=== PATIENT | female | born 1975 | race Caucasian/White ===

== ENCOUNTER 2017-12-05 04:00 | Emergency (ER) | payer OTHER, SELFPAY ==
[2017-12-05 04:01] VITALS: BP 158/94; PULSE 101; RESP 20; TEMP 36.8; O2SAT 97; BMI 41.5
[2017-12-05 04:04] VITALS: BP 158/94; PULSE 93; RESP 21; TEMP 36.8; O2SAT 98; BMI 41.5
[2017-12-05] MEDS: predniSONE 20 MG Tablet 60 MG PO (04:17)
--- NOTE | 2017-12-05 05:11 | ED.VISSUMM ---
- ER Visit Summary Date of Service: 12/05/17 Chief Complaint: Rash History of Present Illness: The patient is a 42 F who presents with a rash. She has a history of multiple prior similar episodes of urticaria. She has undergone testing from an mosaic floor layer and received no definitive diagnosis on what she is reacting to. She woke up today and states that her eyes and ears felt like there were swelling and tingling and she then began developed a hives-like rash. She took 2 Benadryl with improvement of symptoms and then presented here. She denies any difficulty swallowing or speaking. No nausea or vomiting. Physical Examination: Afebrile vitals unremarkable Moist mucous membranes Heart regular rate and rhythm Lungs are clear Abdomen soft Airway patent Urticarial rash noted to the arms and upper chest Test Results: Not indicated Emergency Department Course and Treatment: Patient has no evidence of anaphylaxis. At the time my examination she only had an urticarial rash without really any other symptoms. We discussed Kenalog although the patient would prefer to take prednisone rather than have an injection. She was given prednisone here. She does have some for a standing prescription that she is to take at the onset of symptoms. However she only has a couple of tablets of this was given a new prescription for prednisone and advised to keep that prednisone with her EpiPen as instructed by her mosaic floor layer. She has been observed here for an hour and remained stable. Her urticaria has actually slightly progressed however she still has no airway issues and is comfortable with the plan to be discharged. Treatment Plan: [] Disposition: Discharge Impression: Urticaria This note was generated with [employer] dictation software. It may contain incorrect words, spelling, and punctuation that were not noted in review of the chart prior to signing ED Disposition - Plan for ED Patient: Chief Complaint: Allergic Reaction Referrals: Catalina Silva MD [Primary Care Provider] -
[2017-12-05 05:14] VITALS: BP 148/93; PULSE 82; RESP 18; O2SAT 93
--- NOTE | 2017-12-05 05:14 | ED.DCSUM_ITS ---
- ER Visit Summary Date of Service: 12/05/17 Chief Complaint: Rash History of Present Illness: The patient is a 42 F who presents with a rash. She has a history of multiple prior similar episodes of urticaria. She has undergone testing from an air defense specialist and received no definitive diagnosis on what she is reacting to. She woke up today and states that her eyes and ears felt like there were swelling and tingling and she then began developed a hives- like rash. She took 2 Benadryl with improvement of symptoms and then presented here. She denies any difficulty swallowing or speaking. No nausea or vomiting. Physical Examination: Afebrile vitals unremarkable Moist mucous membranes Heart regular rate and rhythm Lungs are clear Abdomen soft Airway patent Urticarial rash noted to the arms and upper chest Test Results: Not indicated Emergency Department Course and Treatment: Patient has no evidence of anaphylaxis. At the time my examination she only had an urticarial rash without really any other symptoms. We discussed Kenalog although the patient would prefer to take prednisone rather than have an injection. She was given prednisone here. She does have some for a standing prescription that she is to take at the onset of symptoms. However she only has a couple of tablets of this was given a new prescription for prednisone and advised to keep that prednisone with her EpiPen as instructed by her air defense specialist. She has been observed here for an hour and remained stable. Her urticaria has actually slightly progressed however she still has no airway issues and is comfortable with the plan to be discharged. Treatment Plan: [] Disposition: Discharge Impression: Urticaria This note was generated with [employer] dictation software. It may contain incorrect words, spelling, and punctuation that were not noted in review of the chart prior to signing ED Disposition - Plan for ED Patient: Chief Complaint: Allergic Reaction Referrals: Catalina Silva MD [Primary Care Provider] -
--- NOTE | 2017-12-05 05:14 | ED.DEP ---
ED Disposition - Plan for ED Patient: Chief Complaint: Allergic Reaction Instructions: ED Urticaria Prescriptions: Prednisone [Deltasone] 60 mg PO DAILY #12 tab Referrals: Catalina Silva MD [Primary Care Provider] -
== END 2017-12-05 05:18 | disposition home or self-care (01) ==
LOC: ED 04:17
PROVIDERS: Emergency Provider Emergency Medicine; Family Provider Internal Medicine; PCP Internal Medicine
DX: L50.9 Urticaria, unspecified (principal); L90.0 Lichen sclerosus et atrophicus; Z79.899 Other long term (current) drug therapy
CPT/HCPCS: 99283

== ENCOUNTER → 2018-01-18 08:34 | Outpatient (CLI) | payer OTHER, SELFPAY | PROVIDERS: Family Provider Internal Medicine; PCP Internal Medicine; Visit Provider Obstetrics & Gynecology | DX: Z12.31 Encounter for screening mammogram for malignant neoplasm of breast (principal) | CPT/HCPCS: 77063; 77067 ==

== ENCOUNTER 2018-01-21 02:14 | Emergency (ER) | payer OTHER, SELFPAY ==
[2018-01-21 02:15] VITALS: BP 152/113; PULSE 103; RESP 21; TEMP 36.8; O2SAT 97; BMI 43.9
--- NOTE | 2018-01-21 02:26 | ED.DCSUM_ITS ---
- ER Visit Summary Date of Service: 01/21/18 Chief Complaint: [] Complaining of food allergy History of Present Illness: The patient is a 43 F 20 minutes prior to coming in developed a food allergy. This is similar to previous experiences. She wakes up in the middle the night and has the urge to defecate. She goes to the bathroom and then developed hives on her arms and her tongue and throat feel tight. She has never had use epinephrine outside the emergency department. She took Benadryl just prior to coming in and it slowly kicking in now. She has had this on and off for last couple years and has seen an rn bariatric. They think it secondary to reheated food. She had a negative workup. She has had multiple ER visits for this. Physical Examination: [] Vital signs reviewed General: Well-nourished well-developed Head: Normocephalic atraumatic Eyes: Pupils equal round and reactive to light extraocular movements intact ENT: TMs clear no hemotympanum no trauma. Throat exam normal Neck: Nontender full range of motion Cardiovascular: Regular rate rhythm no murmurs normal S1-S2 Respiratory: No distress clear to auscultation bilaterally chest nontender Abdomen: Soft nontender nondistended normal bowel sounds no masses Back: Nontender no CVA tenderness Extremities: Nontender active range of motion ?4 extremities no trauma Skin: Very mild redness on her bilateral upper extremities in anterior chest wall. No significant hives. Neuro alert oriented cranial nerves II through XII intact normal strength sensation reflexes Test Results: [] Emergency Department Course and Treatment: [] Patient monitored in the department. She did not want any steroids because Benadryl usually works. Watch for approximately an hour with almost complete resolution of symptoms. Will be discharged with prednisone to use as needed. She will likely not have to fill this as it is getting better. She will follow-up as an outpatient Treatment Plan: [] Disposition: [] Impression: [] Allergic reaction This note was generated with [employer] dictation software. It may contain incorrect words, spelling, and punctuation that were not noted in review of the chart prior to signing ED Disposition - Plan for ED Patient: Disposition: Home or Assisted Living Chief Complaint: Allergic Reaction Instructions: ED Allergic Reaction General Other Prescriptions: Prednisone [Deltasone] 60 mg PO DAILY #15 tab Referrals: Catalina Silva MD [Primary Care Provider] -
[2018-01-21 03:01] VITALS: BP 119/96; PULSE 75; RESP 14; O2SAT 96
== END 2018-01-21 03:02 | disposition home or self-care (01) ==
PROVIDERS: Emergency Provider Emergency Medicine; Family Provider Internal Medicine; PCP Internal Medicine
DX: T78.1XXA Other adverse food reactions, not elsewhere classified, initial encounter (principal); L53.9 Erythematous condition, unspecified; X58.XXXA Exposure to other specified factors, initial encounter
CPT/HCPCS: 99284; A4216

== ENCOUNTER 2018-01-26 20:57 | Emergency (ER) | payer OTHER, SELFPAY ==
[2018-01-26 20:58] VITALS: BP 145/67; PULSE 112; RESP 19; TEMP 37.2; O2SAT 98; BMI 41.0
[2018-01-26 21:27] VITALS: BP 146/89; PULSE 81; RESP 18; O2SAT 97
--- NOTE | 2018-01-26 21:47 | ED.DCSUM_ITS ---
- ER Visit Summary Date of Service: 01/26/18 Chief Complaint: Severe allergic reaction History of Present Illness: The patient is a 43 F who presents after onset of severe allergic reaction. Patient has history of idiopathic severe allergic reaction, suspected due to reheated food. Patient ate restaurant food for lunch and dinner today. Approximately 50 minutes prior to presentation, patient began experiencing itchiness, hives, swelling of the throat and tongue as well as hands. Patient took an EpiPen 15 minutes later and has had improvement of her symptoms. She still feels mild tongue swelling and has residual erythema of the skin but feels much better. She denies chest pain, shortness of breath, nausea or vomiting, headache or dizziness, or any other symptoms. Physical Examination: Vital signs: afebrile, hemodynamically stable, tachycardic at presentation but now normal heart rate, no hypoxia on room air General: well nourished, well developed, in no distress Skin: warm, dry, diffuse blanching erythema on torso and extremities, no urticaria, no pallor HEENT: normocephalic and atraumatic; PERRL, EOMI, moist mucous membranes, no observable tongue swelling, no oral lesions no lip edema Cardiovascular: regular rate and rhythm without murmurs, no peripheral edema, 2 + pulses all distal extremities Respiratory: No increased work of breathing, lungs are clear to auscultation bilaterally, no rales, rhonchi or wheezing no stridor Abdominal: Abdomen is soft, nontender with normoactive bowel sounds, no guarding or rebound, no masses MSK: Moves all extremities, no deformities, normal strength Neuro: Awake and alert, oriented ?4. No facial droop, sensation and motor function intact and symmetric Test Results: [] Emergency Department Course and Treatment: Patient already took epinephrine and has almost complete resolution of her symptoms. Patient was given prednisone, Benadryl and Pepcid for additional symptomatic relief. She will be observed for 4 hours from administration of her EpiPen for any worsening of her condition. Patient will given an additional prescription for her EpiPen, she only has one left. She will be given 5 days of prednisone and Pepcid. SHe has Benadryl at home. Patient had no return of symptoms after 4 hours of observation, and was feeling well. Skin erythema had resolved and patient had no urticaria or any further erythema. Patient was discharged home. Treatment Plan: [] Disposition: [] Impression: Anaphylaxis This note was generated with [employer] dictation software. It may contain incorrect words, spelling, and punctuation that were not noted in review of the chart prior to signing ED Disposition - Plan for ED Patient: Disposition: Home or Assisted Living Chief Complaint: Allergic Reaction Instructions: ED Anaphylaxis General Prescriptions: Epinephrine [Epi Pen] 0.3 mg IM X1 #2 syringe Famotidine [Pepcid] 20 mg PO DAILY #7 tab Prednisone [Deltasone] 40 mg PO DAILY #10 tab Referrals: Catalina Silva MD [Primary Care Provider] - 1-2 Days if not improving Additional Instructions: Please make sure you are carrying an EpiPen at all times and use it as needed. Take the prednisone and Pepcid as prescribed for the next 5-7 days. Use Benadryl every 4-6 hours as needed for itching and urticaria. If you have any worsening of your condition or any new concerning symptoms, please return immediately to the emergency department for another evaluation.
[2018-01-26] MEDS: Famotidine 20 MG Tablet PO (21:58)
[2018-01-26] MEDS: predniSONE 20 MG Tablet 40 MG PO (21:59)
[2018-01-26 22:00] VITALS: BP 135/64; PULSE 89; RESP 18; O2SAT 95
[2018-01-26] MEDS: DiphenhydrAMINE 25 MG Capsule 50 MG PO (22:15)
[2018-01-26 23:05] VITALS: PULSE 82; RESP 16; O2SAT 98
--- NOTE | 2018-01-27 00:14 | ED.DEP ---
ED Disposition - Plan for ED Patient: Disposition: Home or Assisted Living Chief Complaint: Allergic Reaction Instructions: ED Anaphylaxis General Prescriptions: Epinephrine [Epi Pen] 0.3 mg IM X1 #2 syringe Famotidine [Pepcid] 20 mg PO DAILY #7 tab Prednisone [Deltasone] 40 mg PO DAILY #10 tab Referrals: Catalina Silva MD [Primary Care Provider] - 1-2 Days if not improving Additional Instructions: Please make sure you are carrying an EpiPen at all times and use it as needed. Take the prednisone and Pepcid as prescribed for the next 5-7 days. Use Benadryl every 4-6 hours as needed for itching and urticaria. If you have any worsening of your condition or any new concerning symptoms, please return immediately to the emergency department for another evaluation.
[2018-01-27 00:36] VITALS: BP 134/78; PULSE 94; RESP 16; O2SAT 98
--- NOTE | 2018-01-27 00:37 | ED.RN ---
THIS NURSE REVIEWED D/C INSTRUCTIONS WITH PT. PT VERBALIZED UNDERSTANDING OF INSTRUCTIONS. IV D/C. IV CATHETER INTACT. PT TOLERATED WELL. PER DR PURVIS PT OK TO BE D/C AT THIS TIME SINCE RECEIVING BENADRYL DOSE. PT AMBULATES FROM ROOM ON OWN WITHOUT ASSISTANCE FROM STAFF
== END 2018-01-27 00:38 | disposition home or self-care (01) ==
PROVIDERS: Emergency Provider Emergency Medicine; Family Provider Internal Medicine; PCP Internal Medicine
DX: T78.09XA Anaphylactic reaction due to other food products, initial encounter (principal); Z79.899 Other long term (current) drug therapy
CPT/HCPCS: 99284; A4216

== ENCOUNTER 2019-02-19 03:08 | Emergency (ER) | payer OTHER, SELFPAY ==
[2019-02-19 03:09] VITALS: BP 149/87; PULSE 96; RESP 18; TEMP 36.6; O2SAT 98; BMI 44.9
[2019-02-19 03:13] VITALS: RESP 18
--- NOTE | 2019-02-19 03:16 | CT_ITS ---
STUDY: CT ABDOMEN AND PELVIS WITHOUT CONTRAST REASON FOR EXAM: Female, 44 years old. . The left-sided flank pain RADIATION DOSAGE (If Supplied By Facility): CTDIvol = ( 23.92 ) mGy, DLP = ( 1159.11 ) mGycm TECHNIQUE: Transaxial images were obtained from the dome of the diaphragm to the symphysis pubis without oral contrast, and without intravenous contrast. Sagittal and coronal images were reconstructed. Individualized dose optimization techniques were used for this CT. COMPARISON: April 18, 2014 CT abdomen pelvis FINDINGS: Lung bases demonstrate no evidence for consolidative process. No pericardial effusion. Liver and spleen are grossly within normal limits. The gallbladder and the pancreas as well as the adrenal glands appear unremarkable. No evidence for acute appendicitis. No evidence for acute diverticulitis. A few scattered colonic diverticulosis. Mild left-sided hydronephrosis and hydroureter with an approximately 3 to 4 mm stone in the proximal left ureter Osseous structures demonstrate no acute abnormalities. Mild levoconvex lumbar curvature. Few scattered nonenlarged retroperitoneal lymph nodes IMPRESSION: Mild left-sided hydronephrosis and hydroureter with a 3 to 4 mm stone in the proximal left ureter. Electronically Signed: Pedro Buck, at 4:15 EDT Tel , Service support , CT/Abdomen/Pelvis without Cont
--- NOTE | 2019-02-19 03:17 | ED.DCSUM_ITS ---
History of Present Illness Chief Complaint: Flank Pain Detail of Chief Complaint: Left flank pain Informant: Patient Onset: - - Waxing and waning pain x1 month, worse since 10 PM last evening. Context: Gradual Onset Timing: Waxes and wanes Current Severity: Moderate Maximum Severity: Moderate Narrative: Patient presents with left flank pain this been ongoing intermittently for the past month. Since 10 PM last evening pain is gotten significantly worse. She states she was treated for UTI last week. She has had kidney stones in the past and this feels similar. She has never required surgery for her stones. She did take 800 mg of ibuprofen prior to arrival. Past Medical History - Allergies and Home Meds Allergies/Adverse Reactions: Allergies FOOD ALLERGY - UNKNOWN Allergy (Uncoded 02/19/19 03:16) Anaphylaxis Primary Care Physician: Catalina Silva MD [Primary Care Provider] - Prior records reviewed: Yes Past Medical History: - - Reviewed Smoking Status: Never smoker Review of Systems General: Reports: Chills. Denies: Fever Eyes: Denies: Visual changes - bilaterally ENT: Denies: Bilateral ear pain Cardiovascular: Denies: Chest pain Respiratory: Denies: Dyspnea, Cough Gastrointestinal: Reports: Abdominal pain - Left flank pain, Nausea. Denies: Vomiting Genitourinary: Denies: Dysuria, Hematuria Musculoskeletal: Reports: Back pain - Left flank Skin: Denies: Rash Endocrine: Denies: Polyuria, Polydipsia Hematologic: Denies: Easy bruising Allergy: Denies: Uticaria Physical Exam Vital Signs/Narrative: Vital Signs Temp Pulse Resp BP Pulse Ox 02/19/19 03:13 18 02/19/19 03:09 97.8 F 96 18 149/87 H 98 Inital Vital Signs reviewed: Yes General: Well nourished, Well developed Head: Normocephalic Eyes: EOMI ENT: Moist mucous membranes Neck: Supple Cardiovascular: Regular rate, Regular rhythm Respiratory: No distress, CTA bilaterally Abdomen: Soft, Nontender Back: Nontender Extremities: Nontender Skin: Normal color, No rash Neurological: Alert, Oriented x3 Psychological: Normal affect Diagnostic/Tx/Re-eval Impressions Abdomen/Pelvis CT 02/19/19 03:16 IMPRESSION: Mild left-sided hydronephrosis and hydroureter with a 3 to 4 mm stone in the proximal left ureter. 02/19/19 03:16 Abdomen/Pelvis without Cont [CT] Stat Laboratory Results 02/19/19 02/19/19 02/19/19 03:15 03:15 03:24 WBC 13.1 H RBC 4.50 Hgb 11.2 L Hct 35.3 L MCV 78.4 L MCH 24.9 L MCHC 31.7 L RDW Std Deviation 40.0 RDW Coeff of Julia 13.9 Plt Count 363 MPV 8.8 Immature Gran % (Auto) 0.500 Neut % (Auto) 68.6 Lymph % (Auto) 23.9 [place] % (Auto) 4.6 Eos % (Auto) 2.1 Baso % (Auto) 0.3 Absolute Neuts (auto) 9.0 H Absolute Lymphs (auto) 3.12 Nucleated RBC % 0 Sodium Potassium Chloride Carbon Dioxide Anion Gap BUN Creatinine Estim Creat Clear Calc Est GFR (MDRD) Af Amer Est GFR (MDRD) Non-Af BUN/Creatinine Ratio Glucose Calcium Urine Color Yellow Urine Clarity Sl. Cloudy Urine pH 6.5 Ur Specific [place] 1.015 Urine Protein 30 H Urine Glucose (UA) Normal Urine Ketones Negative Urine Occult Blood 25 H Urine Nitrite Negative Urine Bilirubin Negative Urine Urobilinogen Normal Ur Leukocyte Esterase 500 H Urine RBC 0-5 SEEN Urine WBC 50-100 SEEN Ur Squamous Epith Cells 0-5 SEEN Urine Bacteria 2+ Urine Mucus 0 SEEN Urine Test Negative 02/19/19 03:24 WBC RBC Hgb Hct MCV MCH MCHC RDW Std Deviation RDW Coeff of Julia Plt Count MPV Immature Gran % (Auto) Neut % (Auto) Lymph % (Auto) [place] % (Auto) Eos % (Auto) Baso % (Auto) Absolute Neuts (auto) Absolute Lymphs (auto) Nucleated RBC % Sodium 140 Potassium 4.0 Chloride 106 Carbon Dioxide 24.0 Anion Gap 10 BUN 8 Creatinine 0.78 Estim Creat Clear Calc 74.31 Est GFR (MDRD) Af Amer 105 Est GFR (MDRD) Non-Af 87 BUN/Creatinine Ratio 10.3 Glucose 103 Calcium 9.0 Urine Color Urine Clarity Urine pH Ur Specific [place] Urine Protein Urine Glucose (UA) Urine Ketones Urine Occult Blood Urine Nitrite Urine Bilirubin Urine Urobilinogen Ur Leukocyte Esterase Urine RBC Urine WBC Ur Squamous Epith Cells Urine Bacteria Urine Mucus Urine Test - Medical Decision Making Patient had taken ibuprofen shortly before arrival. She is given morphine and Zofran here. Urinalysis does show infection. She is senior care through a course of Keflex for UTI. She is given a dose of IV Rocephin here. Urine culture has been sent. Patient does have evidence of a left ureteral stone, measuring 3 to 4 mm. She should be able to pass this. I did express concern to her about having infected urine with a kidney stone. Pain is well controlled at this time we will give her a chance to pass it. We will change her antibiotic from Keflex to Bactrim. We will give her pain medication as well as Flomax. She will follow-up with Dr. Cullen. She was given specific return instructions. ED Disposition - Plan for ED Patient: Disposition: Home or Assisted Living Diagnosis: Left ureteral stone, UTI (urinary tract infection) Instructions: KIDNEY STONE w/ Colic, Bladder Infection, Female (Adult) Prescriptions: Smz/Tmp Ds [Bactrim Ds] 1 tablet PO BID #14 tablet Tamsulosin HCl [Flomax] 0.4 mg PO DAILY #7 capsule Hydrocodone Bitart/Apap 5-325 [[place] 5MG-325MG] 1 tablet PO Q6H PRN PRN 3 Days #10 tablet PRN Reason: Pain Ketorolac [Toradol] 10 mg PO Q6H PRN #14 tablet PRN Reason: Pain Score 1-10/10 Ondansetron [Zofran Odt] 4 mg PO Q8H PRN PRN #10 tablet PRN Reason: Nausea Referrals: Dash Cullen MD [STAFF PHYSICIAN] - 3-5 Days if not improving Additional Instructions: Return for worsening pain, fever, vomiting and unable to tolerate meds, or if a ny other concerns arise.
[2019-02-19 03:24] LABS: Mucous, Urine 0 SEEN /hpf (<or=2+)
[2019-02-19 03:26] LABS: Color, Urine Yellow (Yellow); Glucose, Dipstick Normal (Normal); Ketone-Dipstick Negative (Negative); Leukocyte Esterase-Dipstick 500 /ul (Negative); Nitrite-Dipstick Negative (Negative); Occult Blood-Urine 25 /ul (Negative); Protein-Dipstick 30 mg/dl (Negative); Specific Gravity, Urine 1.015 (1.002-1.030); Urine Bilirubin Dipstick Negative (Negative); Urine Clarity Sl. Cloudy (Clear); Urine Urobilinogen Normal (Normal); Urine pH 6.5 (5.0 - 8.0)
[2019-02-19 03:29] LABS: Internal QC Validated? YES +Cl - CLEAR BKGD; Pregnancy, Urine Negative Negative
[2019-02-19 03:30] LABS: Absolute Lymphocyte Count 3.12 X10^3/uL (0.83-4.51); Basophil# 0.04 X10^3/uL; Basophil% 0.3 % (0-1); Eosinophil# 0.27 X10^3/uL; Eosinophils% 2.1 % (0-5); Hematocrit 35.3 % (37-47); Hemoglobin 11.2 g/dL (12.0-15.0); Lymphocyte # 3.12 X10^3/ul (4.0); Lymphocyte % 23.9 % (19-41); Mean Corp Hgb Conc 31.7 g/dL (32-36); Mean Corpuscular Hgb 24.9 pg (27.0-32.0); Mean Corpuscular Volume 78.4 fL (81-99); Mean Platelet Vol. 8.8 fl (6.2-12.0); Monocyte% 4.6 % (0-10); NRBC Flagged by Analyzer 0 % (0-5); Neutrophil # 8.97 X10^3/uL (2.7-7.7); Neutrophil % 68.6 % (47-70); Platelet Count 363 K/mm3 (150-450); RBC Distribution Width CV 13.9 % (11.6-14.6); White Blood Count 13.1 K/mm3 (4.4-11.0)
[2019-02-19] MEDS: Ondansetron 4 MG/2 ML Vial IV (03:31)
[2019-02-19] MEDS: 0.9% Normal Saline 1,000 ML 150 ML IV (03:31)
[2019-02-19 03:32] LABS: Bacteria 2+ /hpf (None Seen); Red Blood Cells-Urine 0-5 SEEN /hpf (0-5); Squamous Epithelial Cells - UA 0-5 SEEN /hpf (5-10); White Blood Cells 50-100 SEEN /hpf (0-5)
[2019-02-19] MEDS: Morphine 4 MG/ML Syringe IV (03:32)
[2019-02-19] MEDS: Ceftriaxone 1 GM/50 ML BAG IV (03:54)
[2019-02-19 04:17] LABS: Anion Gap 10 (5-15); BUN 8 mg/dL (7-18); BUN/Creat Ratio 10.3 RATIO (10-20); Chloride 106 mmol/L (98-107); Creatinine, Serum 0.78 mg/dL (0.55-1.02); EST Glomerular Filtration Rate 87 mL/min (>60); Est Glom Filt Rate - Afr Amer 105 mL/min (>60); Estimated Creatinine Clearance 74.31 ml/min; Glucose 103 mg/dL (74-106); Sodium Level 140 mmol/L (136-145)
[2019-02-19 05:21] VITALS: BP 144/73; PULSE 74; RESP 16; O2SAT 99
== END 2019-02-19 05:23 | disposition home or self-care (01) ==
PROVIDERS: Emergency Provider Emergency Medicine; Family Provider Internal Medicine; PCP Internal Medicine
DX: N13.2 Hydronephrosis with renal and ureteral calculous obstruction (principal); N39.0 Urinary tract infection, site not specified; Z87.442 Personal history of urinary calculi; Z87.440 Personal history of urinary (tract) infections
CPT/HCPCS: 74176; 80048; 81001; 81025; 85025; 87086; 87088; 96365; 96375; 99284; J7030; A4216; J2405

== ENCOUNTER 2021-02-15 20:57 | Emergency (ER) | payer OTHER, SELFPAY ==
[2021-02-15 20:58] VITALS: BP 174/94; PULSE 103; RESP 18; TEMP 36.1; O2SAT 96; BMI 46.6
--- NOTE | 2021-02-15 21:54 | ED.RN ---
PT REPORTS THAT HER PAIN IS BETTER, STATES SHE IS GOING TO GO HOME AND WILL RETURN IF PAIN COMES BACK
== END 2021-02-15 21:55 | disposition left against medical advice (07) ==
LOC: ED 22:11
PROVIDERS: PCP Internal Medicine
DX: R10.9 Unspecified abdominal pain (principal)

== ENCOUNTER 2021-07-09 08:14 | Outpatient (CLI) | payer OTHER, SELFPAY ==
--- NOTE | 2021-07-09 08:18 | BI_ITS ---
MAMMOGRAPHY - BILATERAL SCREENING REASON FOR EXAM: Female, 46 years old. Routine annual screening examination. PERTINENT HISTORY: Non-contributory. TECHNIQUE: Digital bilateral breast gillian (3D mammographic acquisition) in the CC and MLO projections. 2-D mediolateral oblique (MLO) and craniocaudad (CC) views of both breasts were obtained. CAD: Full Field Digital Mammography with Computer Added Detection was performed. COMPARISON: Comparison is made with prior examination 01/18/2018. FINDINGS: Breast Composition: The breasts are heterogeneously dense, which may obscure small masses. There are no dominant masses or suspicious calcifications. Stable small benign-appearing bilateral axillary lymph nodes. No other significant abnormalities are identified. There has been no significant change since the prior study. BI/SCRN MAMM (CAD)W/GILLIAN BILAT IMPRESSION: Stable bilateral screening mammogram. Yearly follow-up mammogram recommended. (A) ASSESSMENT CATEGORY: BIRADS Category 2: Benign. A letter regarding these results will be sent to the patient by the facility within 30 days. Approximately 10% of breast cancers are not detected by mammography. A normal mammogram should not delay biopsy of a clinically suspicious abnormality. [id number] Electronically Signed: Josh Vaughn MD at 9:06 EST ,
== END 2021-07-09 23:59 | disposition home or self-care (01) ==
LOC: OPBI 08:16
PROVIDERS: PCP Internal Medicine; Referring Provider Obstetrics & Gynecology; Visit Provider Obstetrics & Gynecology
DX: Z12.31 Encounter for screening mammogram for malignant neoplasm of breast (principal)
CPT/HCPCS: 77063; 77067

== ENCOUNTER 2022-04-23 21:14 | Emergency (ER) | payer OTHER, SELFPAY ==
[2022-04-23 21:15] VITALS: BP 193/72; PULSE 67; RESP 15; TEMP 35.7; O2SAT 98; BMI 39.6
--- NOTE | 2022-04-23 21:54 | ED.VIS.DENTA ---
HPI History of Present Illness Chief Complaint: Dental Narrative Narrative: Patient presents with dental pain. She is scheduled for root canal but not till next week she is on outpatient [place] and antibiotics but the pain was too bad today. She has no ear pain and no TMJ pain. She has no swelling. No fevers or chills. PFSH PFSH Home Medications epinephrine 0.3 mg/0.3 mL injection, auto-injector 0.3 mg IM X1 PRN Anaphylaxis ##1 06/20/16 [Rx Last Taken Unknown] norelgestromin 150 mcg-e.estradiol 35 mcg/24 hr weekly transderm patch (Xulane) 1 ea transdermal QWEEK 06/20/16 [History Last Taken Unknown] epinephrine 0.3 mg/0.3 mL injection, auto-injector 0.3 mg (0.3 mL) IM X1 severe allergic reaction ##2 01/27/18 [Rx Last Taken Unknown] famotidine 20 mg tablet 20 mg PO DAILY #7 tabs 01/27/18 [Rx Last Taken Unknown] prednisone 20 mg tablet 40 mg PO DAILY #10 tabs 01/27/18 [Rx Last Taken Unknown] ketorolac 10 mg tablet 10 mg PO Q6H PRN Pain Score 1-10/10 #14 tabs 02/19/19 [Rx Last Taken Unknown] ondansetron 4 mg disintegrating tablet 4 mg PO Q8H PRN PRN Nausea #10 tabs 02/19/19 [Rx Last Taken Unknown] sulfamethoxazole 800 mg-trimethoprim 160 mg tablet 1 tab PO BID #14 tabs 02/19/19 [Rx Last Taken Unknown] tamsulosin 0.4 mg capsule 0.4 mg PO DAILY #7 caps 02/19/19 [Rx Last Taken Unknown] Allergy/AdvReac Type Severity Reaction Status Date / Time FOOD ALLERGY - UNKNOWN Allergy Anaphylaxis Uncoded 02/19/19 03:16 Social History Smoking Status: Never smoker ROS ROS ED ROS Narrative Past medical history: Reviewed Medications: Reviewed Social history: Noncontributory Review of systems: All systems negative except as indicated General: No fever Eyes: No visual changes ENT: No dentalgia as in HPI Neck: No neck pain Skin: No rash Neurological: No facial droop EXAM Physical Exam Narrative Exam Narrative: Physical exam General: Patient appears somewhat uncomfortable Head: Normocephalic, Atraumatic Eyes: Conjunctiva not pale ENT: Tenderness over the left upper molar region she is actually tender in all 3 molars. No periapical abscess Neck: Supple, Nontender, No lymphadenopathy Neurological: No facial droop Const Vital Signs: 04/23/22 21:15 Temperature 96.3 F L Temperature Source Temporal Pulse Rate 67 Respiratory Rate 15 Blood Pressure 193/72 H Blood Pressure Mean 112 Pulse Ox 98 Oxygen Delivery Method Room Air [facility] [place] Narrative Medical decision making narrative: Patient be given analgesia she is already on antibiotics I do not see any outward signs of infection. I will discharge in stable condition peer Discharge Plan Triage Chief Complaint: Dental ED Provider: Anuel Wang Dx/Rx/DC Orders Clinical Impression: Odontalgia, Dental infection Prescriptions: No Action norelgestromin-ethin.estradiol [Xulane] 1 EACH Patch.Tdwk 1 ea transdermal QWEEK epinephrine 0.3 MG/0.3 ML Auto.Injct 0.3 mg IM X1 PRN (Reason: Anaphylaxis) Qty: 1 1RF prednisone 20 MG tablet 40 mg PO DAILY Qty: 10 0RF Rx Instructions: With food famotidine 20 MG tablet 20 mg PO DAILY Qty: 7 0RF epinephrine 0.3 MG syringe 0.3 mg IM X1 Qty: 2 2RF Rx Instructions: May repeat as needed for continued symptoms ondansetron 4 MG tablet 4 mg PO Q8H PRN PRN (Reason: Nausea) Qty: 10 0RF sulfamethoxazole-trimethoprim 1 TABLET tablet 1 tab PO BID Qty: 14 0RF tamsulosin 0.4 MG capsule 0.4 mg PO DAILY Qty: 7 0RF ketorolac 10 MG tablet 10 mg PO Q6H PRN (Reason: Pain Score 1-10/10) Qty: 14 0RF Primary Care Provider: Catalina Silva Referrals: Catalina Silva MD [Primary Care Provider] - Activity Restrictions/Additional Instructions: Follow-up with dentistry as scheduled Disposition Disposition: Home, Self Care
[2022-04-23] MEDS: HYDROmorphone 1 MG/ML Syringe SC (22:05)
[2022-04-23] MEDS: Ketorolac 30 MG/ML Syringe IM (22:05)
[2022-04-23 22:24] VITALS: RESP 16
== END 2022-04-23 23:01 | disposition home or self-care (01) ==
PROVIDERS: Emergency Provider Emergency Medicine; PCP Internal Medicine; Visit Provider Emergency Medicine
DX: K04.7 Periapical abscess without sinus (principal); K08.89 Other specified disorders of teeth and supporting structures
CPT/HCPCS: 96372; 99282

== ENCOUNTER 2024-01-17 17:57 | Emergency (ER) | payer OTHER, SELFPAY ==
[2024-01-17 18:01] VITALS: BP 124/81; PULSE 115; RESP 18; TEMP 38; O2SAT 98; BMI 46.0
[2024-01-17] MEDS: 0.9% Normal Saline (1000mL) 1,000 ML 999 ML IV (18:45)
--- NOTE | 2024-01-17 19:00 | RAD_ITS ---
EXAM: XR CHEST, 2 VIEWS CLINICAL INDICATION: cough, fever TECHNIQUE: Frontal and lateral views of the chest. COMPARISON: No relevant prior studies available. FINDINGS: LUNGS AND PLEURAL SPACES: Unremarkable. No consolidation or edema. No pneumothorax. No effusion. HEART: Unremarkable. Cardiac silhouette not enlarged. MEDIASTINUM: Central airways and mediastinal contour are unremarkable. BONES/JOINTS: Unremarkable. No acute fracture. SOFT TISSUES: Unremarkable. TUBES, LINES AND DEVICES: Left-sided ported catheter. Tip of the right atrium. UPPER ABDOMEN: Elevated right hemidiaphragm. RAD/Chest PA and Lateral IMPRESSION: No acute findings in the chest. Electronically Signed: Jd Yusuf MD at 19:18 EDT ,
[2024-01-17 19:03] LABS: Absolute Lymphocyte Count 0.32 X10^3/uL (0.83-4.51); Absolute Neutrophil Count 5.3 X10^3/uL (2.0-7.7); Basophil# 0.02 X10^3/uL; Basophil% 0.3 % (0-1); Eosinophil# 0.03 X10^3/uL; Eosinophils% 0.5 % (0-5); Hematocrit 26.4 % (37-47); Hemoglobin 8.6 g/dL (12.0-15.0); Lymphocyte # 0.32 X10^3/ul (0.83-4.51); Lymphocyte % 5.1 % (19-41); Mean Corp Hgb Conc 32.6 g/dL (32-36); Mean Corpuscular Hgb 31.4 pg (27.0-32.0); Mean Corpuscular Volume 96.4 fL (81-99); Mean Platelet Vol. 9.4 fl (6.2-12.0); Monocyte% 9.6 % (0-10); NRBC Flagged by Analyzer 0 % (0-5); Neutrophil # 5.26 X10^3/uL (2.7-7.7); Neutrophil % 83.9 % (47-70); POSITIVE DIFFERENTIAL YES; Platelet Count 182 K/mm3 (150-450); RBC Distribution Width CV 16.6 % (11.6-14.6); RBC Distribution Width SD 59.1 fl (35.1-43.9); Red Blood Count 2.74 M/mm3 (4.2-5.4); White Blood Count 6.3 K/mm3 (4.4-11.0)
--- NOTE | 2024-01-17 19:12 | EX.ED.DYSGE1 ---
HPI <MARIZA Costa - Last Filed: 01/17/24 20:40> History of Present Illness Chief Complaint: Fever Narrative Narrative: Patient presenting today due to a fever, nasal congestion, body aches, and cough that started today. She reports that her son recently started school and has been sick with a URI. She does have a history of breast cancer and finished chemo at the end of November. She recently had a phesgo injection Thursday. She follows with Dr. Riddle with oncology. She denies abdominal pain, nausea, vomiting, chest pain, shortness of breath, and urinary symptoms. PFSH <MARIZA Costa - Last Filed: 01/17/24 20:40> PFSH Home Medications ?Medication ?Instructions ?Recorded ?Last Taken ?Type clobetasol 0.05 % topical ointment 1 applic topical DAILY #60 grams 06/26/22 Unknown Rx escitalopram oxalate 5 mg tablet 5 mg PO DAILY 06/26/22 Unknown History (Lexapro) norethindrone (contraceptive) 0.35 0.35 mg PO DAILY #84 tabs 06/26/22 Unknown Rx mg tablet Allergy/AdvReac Type Severity Reaction Status Date / Time Food Allergies: Uncoded Allergy Anaphylaxis Verified 01/17/24 18:01 Family History Father Heart disease Grandmother Heart disease Colon cancer Surgical History Hx of breast reduction, elective History of delivery Social History Smoking Status: Never smoker alcohol intake: never substance use type: does not use what type of physical activity do you participate in: running and aerobics frequency: 5-6 times per week ROS <MARIZA Costa - Last Filed: 01/17/24 20:40> ROS ED Constitutional Constitutional ED: Reports chills and fever(s) ENT ENT ED: Reports rhinorrhea; Denies sore throat Cardiovascular Cardiovascular: Denies chest pain Respiratory/Chest Respiratory/Chest: Reports cough; Denies dyspnea or sputum Gastrointestinal Gastrointestinal: Denies abdominal pain, nausea or vomiting Genitourinary Genitourinary ED: Denies dysuria, hematuria or urinary urgency Musculoskeletal Musculoskeletal: Reports other Details: Body aches Integumentary Denies rash Neurologic Neurologic: Denies weakness EXAM <MARIZA Costa - Last Filed: 01/17/24 20:40> Physical Exam Const Vital Signs: 01/17/24 18:01 01/17/24 20:00 01/17/24 21:00 Temperature 100.4 F H 97.1 F L Temperature Source Oral Pulse Rate 115 H 97 88 Respiratory Rate 18 24 H 18 Blood Pressure 124/81 H 115/61 105/93 H Blood Pressure Mean 95 79 97 Pulse Ox 98 96 99 Oxygen Delivery Method Room Air Room Air Positive well nourished, well developed and no apparent distress General Appearance ED: well developed HEENT Reports normocephalic, head/scalp atraumatic and TM's clear Tympanic Membrane ED: Yes TM's clear bilateral Mouth ED: Yes moist mucous membranes normal Throat: posterior oropharynx normal, tonsils normal and uvula midline Eyes PERRL and EOMs intact bilaterally Neck full ROM and supple Neck Narrative: No meningeal signs Chest Wall inspection of chest normal Resp normal respiratory effort and clear to auscultation bilaterally Cardio regular rate and regular rhythm GI soft to palpation, non-tender, non-distended and no masses Back/Spine normal ROM and normal to inspection Extremity normal to inspection and full ROM Neuro oriented x3, CN's II-XII intact bilaterally, moves all extremities, no focal motor deficits and no sensory deficits noted Sensorium / Orientation: awake and alert Psych mental status grossly normal and thought process normal Skin no rashes or lesions noted and no wounds <Dr. Jaylen Garcia DO - Last Filed: 01/17/24 21:38> Physical Exam Const Vital Signs: 01/17/24 18:01 01/17/24 20:00 01/17/24 21:00 Temperature 100.4 F H 97.1 F L Temperature Source Oral Pulse Rate 115 H 97 88 Respiratory Rate 18 24 H 18 Blood Pressure 124/81 H 115/61 105/93 H Blood Pressure Mean 95 79 97 Pulse Ox 98 96 99 Oxygen Delivery Method Room Air Room Air MDM <MARIZA Costa - Last Filed: 01/17/24 20:40> MDM MDM Narrative Medical decision making narrative: Patient presenting today due to fevers and flulike symptoms that started today. Given she is immunocompromised, sepsis order set was obtained, she is tachycardic here, temperature of 100.4 ?F. She did have extra strength Tylenol prior to arrival and was told that she cannot take NSAIDs due to a upcoming surgery. She will be given IV fluids, labs will be obtained. Patient CBC does not show neutropenia, she has an H&H of 8.6 and 26.4, this is consistent with her previous labs per patient's oncologist, potassium 3.4, UA negative for UTI. COVID is positive. I did speak with on-call oncologist for Dr. Riddle, he recommends supportive care measures. I did consider Paxlovid and offered this to the patient but she does not want to take this at this time. She is to continue taking Tylenol for fevers. Her heart rate did improve after IV fluids. She reports that she is going to speak with her oncologist tomorrow for follow-up. I do not think that she requires admission at this time. Return instructions discussed and patient discharged home in stable condition. Lab Data Attestation: I reviewed the patient's lab results. Labs: Laboratory Results - last 24 hr 01/17/24 01/17/24 18:50 19:27 WBC 6.3 RBC 2.74 L Hgb 8.6 L Hct 26.4 L MCV 96.4 MCH 31.4 MCHC 32.6 RDW Std Deviation 59.1 H RDW Coeff of Julia 16.6 H Plt Count 182 MPV 9.4 Immature Gran % (Auto) 0.600 Neut % (Auto) 83.9 H Lymph % (Auto) 5.1 L [place] % (Auto) 9.6 Eos % (Auto) 0.5 Baso % (Auto) 0.3 Absolute Neuts (auto) 5.3 Absolute Lymphs (auto) 0.32 L Nucleated RBC % 0 Differential Comment SEE COMMENT Platelet Estimate ADEQUATE RBC Morphology N CHROM Anisocytosis RARE Macrocytosis RARE PT 13.6 INR 1.0 APTT 30.0 Sodium 138 Potassium 3.4 L Chloride 105 Carbon Dioxide 25.0 Anion Gap 8 BUN 16 Creatinine 0.69 Estim Creat Clear Calc 120.47 Est GFR (MDRD) Af Amer 117 Est GFR (MDRD) Non-Af 97 BUN/Creatinine Ratio 23.2 H Glucose 122 H Lactic Acid 1.4 Calcium 8.3 L Total Bilirubin 0.30 AST 24 ALT 31 Alkaline Phosphatase 87 Total Protein 6.1 L Albumin 3.1 L Globulin 3.0 Albumin/Globulin Ratio 1.0 Urine Color Yellow Urine Clarity Clear Urine pH 7.0 Ur Specific [place] 1.005 Urine Protein Negative Urine Glucose (UA) Normal Urine Ketones Negative Urine Occult Blood Negative Urine Nitrite Negative Urine Bilirubin Negative Urine Urobilinogen Normal Ur Leukocyte Esterase Negative Urine RBC 0 SEEN Urine WBC 0 SEEN Ur Squamous Epith Cells 0 SEEN Urine Bacteria 0 SEEN Urine Mucus 0 SEEN Radiography X-Ray: Read by ED Physician Diagnostic Testing: Clinical Impression(s) from Imaging Studies Chest X-Ray 01/17/24 19:00 IMPRESSION: No acute findings in the chest. Electronically Signed: Jd Yusuf MD at 19:18 EDT , <Dr. Jaylen Garcia, DO - Last Filed: 01/17/24 21:38> [facility] MDM Narrative Medical decision making narrative: Patient presenting today due to fevers and flulike symptoms that started today. Given she is immunocompromised, sepsis order set was obtained, she is tachycardic here, temperature of 100.4 ?F. She did have extra strength Tylenol prior to arrival and was told that she cannot take NSAIDs due to a upcoming surgery. She will be given IV fluids, labs will be obtained. Patient CBC does not show neutropenia, she has an H&H of 8.6 and 26.4, this is consistent with her previous labs per patient's oncologist, potassium 3.4, UA negative for UTI. COVID is positive. I did speak with on-call oncologist for Dr. Riddle, he recommends supportive care measures. I did consider Paxlovid and offered this to the patient but she does not want to take this at this time. She is to continue taking Tylenol for fevers. Her heart rate did improve after IV fluids. She reports that she is going to speak with her oncologist tomorrow for follow-up. I do not think that she requires admission at this time. Return instructions discussed and patient discharged home in stable condition. Attending note: I have personally performed a face to face assessment of the patient and have reviewed the ROBERT note. I personally made/approved the management plan and take responsibility for the patient management. I performed a substantive portion of the visit including all aspects of the following. My stover findings include: Fever cough myalgias started since this morning. Sick contact with son. History recent breast cancer chemotherapy finished over 4 weeks ago. Currently started targeted therapy. Fever 101 orally status post Tylenol. No vomiting diarrhea no urinary symptoms. She called the on-call oncologist Dr. Alanis sent to ED for evaluation. Presentation nontoxic. Had temp 100.4 pulse of 115. Sepsis labs were ordered. White count 6.3 no neutropenia. Hemoglobin 8.6 last hemoglobin 11 however thus 5 years ago she denies any rectal bleeding or heavy menstrual periods. No lightheaded symptoms. Lactic acid at 1.4 blood culture x 1 pending. Urine negative for infection. COVID testing returned positive. She is not hypoxic. Discussed with oncology recommend supportive care. Return precautions. All questions were answered. Lab Data Labs: Laboratory Results - last 24 hr 01/17/24 01/17/24 18:50 19:27 WBC 6.3 RBC 2.74 L Hgb 8.6 L Hct 26.4 L MCV 96.4 MCH 31.4 MCHC 32.6 RDW Std Deviation 59.1 H RDW Coeff of Julia 16.6 H Plt Count 182 MPV 9.4 Immature Gran % (Auto) 0.600 Neut % (Auto) 83.9 H Lymph % (Auto) 5.1 L [place] % (Auto) 9.6 Eos % (Auto) 0.5 Baso % (Auto) 0.3 Absolute Neuts (auto) 5.3 Absolute Lymphs (auto) 0.32 L Nucleated RBC % 0 Differential Comment SEE COMMENT Platelet Estimate ADEQUATE RBC Morphology N CHROM Anisocytosis RARE Macrocytosis RARE PT 13.6 INR 1.0 APTT 30.0 Sodium 138 Potassium 3.4 L Chloride 105 Carbon Dioxide 25.0 Anion Gap 8 BUN 16 Creatinine 0.69 Estim Creat Clear Calc 120.47 Est GFR (MDRD) Af Amer 117 Est GFR (MDRD) Non-Af 97 BUN/Creatinine Ratio 23.2 H Glucose 122 H Lactic Acid 1.4 Calcium 8.3 L Total Bilirubin 0.30 AST 24 ALT 31 Alkaline Phosphatase 87 Total Protein 6.1 L Albumin 3.1 L Globulin 3.0 Albumin/Globulin Ratio 1.0 Urine Color Yellow Urine Clarity Clear Urine pH 7.0 Ur Specific [place] 1.005 Urine Protein Negative Urine Glucose (UA) Normal Urine Ketones Negative Urine Occult Blood Negative Urine Nitrite Negative Urine Bilirubin Negative Urine Urobilinogen Normal Ur Leukocyte Esterase Negative Urine RBC 0 SEEN Urine WBC 0 SEEN Ur Squamous Epith Cells 0 SEEN Urine Bacteria 0 SEEN Urine Mucus 0 SEEN Radiography Diagnostic Testing: Clinical Impression(s) from Imaging Studies Chest X-Ray 01/17/24 19:00 IMPRESSION: No acute findings in the chest. Electronically Signed: Jd Yusuf MD at 19:18 EDT Reading Location ID and State: [facility] / [place] , Service support , Discharge Plan Triage Chief Complaint: Fever ED Midlevel Provider: Pham Jones ED Provider: Jaylen Garcia Dx/Rx/DC Orders Clinical Impression: COVID-19, History of breast cancer Instructions: Coronavirus Disease 2019 (COVID-19): Caring for Yourself or Others Prescriptions: No Action escitalopram oxalate [Lexapro] 5 mg tablet 5 mg PO DAILY clobetasol 0.05 % ointment 1 applic topical DAILY Qty: 60 3RF norethindrone (contraceptive) 0.35 mg tablet 0.35 mg PO DAILY Qty: 84 4RF Primary Care Provider: Catalina Silva Referrals: Catalina Silva MD [Primary Care Provider] - 5-7 Days Activity Restrictions/Additional Instructions: Follow-up with your PCP, return for any worsening of symptoms. Continue to take Tylenol for your fevers. Print Language: Estonian Disposition Disposition: Home, Self Care Discharge Date/Time: 01/17/24 21:00
[2024-01-17 19:18] LABS: Differential Indicated SCAN CRITERIA MET
[2024-01-17 19:19] LABS: Prothrombin Time (Protime)PT. 13.6 SECONDS (11.7-14.9)
[2024-01-17 19:23] LABS: AST(SGOT) 24 U/L (15-37); Alanine Aminotransfer ALT/SGPT 31 U/L (13-56); Albumin, Serum 3.1 g/dL (3.2-5.0); Alkaline Phosphatase 87 U/L (45-117); Anion Gap 8 (5-15); BUN 16 mg/dL (7-18); BUN/Creat Ratio 23.2 RATIO (10-20); Calcium,Total 8.3 mg/dL (8.5-10.1); Chloride 105 mmol/L (98-107); Creatinine, Serum 0.69 mg/dL (0.55-1.02); EST Glomerular Filtration Rate 97 mL/min (>60); Est Glom Filt Rate - Afr Amer 117 mL/min (>60); Estimated Creatinine Clearance 120.47 ml/min; Glucose 122 mg/dL (74-106); Lactic Acid 1.4 mmol/L (0.4-1.9); Potassium 3.4 mmol/L (3.5-5.1); Protein, Total 6.1 g/dL (6.4-8.2); Sodium Level 138 mmol/L (136-145)
[2024-01-17 19:34] LABS: Bacteria 0 SEEN /hpf (None Seen); Mucous, Urine 0 SEEN /hpf (<or=2+); Red Blood Cells-Urine 0 SEEN /hpf (0-5); Squamous Epithelial Cells - UA 0 SEEN /hpf (5-10); White Blood Cells 0 SEEN /hpf (0-5)
[2024-01-17 19:37] LABS: Anisocytosis RARE; Macrocytosis RARE; Platelet Estimate ADEQUATE (ADEQ); Red Cell Morphology N CHROM NORMAL (NORM C&C)
[2024-01-17 19:41] LABS: Color, Urine Yellow (Yellow); Glucose, Dipstick Normal (Normal); Ketone-Dipstick Negative (Negative); Leukocyte Esterase-Dipstick Negative /ul (Negative); Nitrite-Dipstick Negative (Negative); Occult Blood-Urine Negative /ul (Negative); Protein-Dipstick Negative (Negative); Specific Gravity, Urine 1.005 (1.002-1.030); Urine Bilirubin Dipstick Negative (Negative); Urine Clarity Clear (Clear); Urine Urobilinogen Normal (Normal)
[2024-01-17 20:00] VITALS: BP 115/61; PULSE 97; RESP 24; O2SAT 96
[2024-01-17] MEDS: 0.9 % NaCl (Sterile) Posiflush 10 mL IV (20:56)
[2024-01-17 21:00] VITALS: BP 105/93; PULSE 88; RESP 18; TEMP 36.2; O2SAT 99
== END 2024-01-17 21:00 | disposition home or self-care (01) ==
PROVIDERS: Physician Assistant; Emergency Provider Emergency Medicine; PCP Internal Medicine; Visit Provider Emergency Medicine
DX: U07.1 COVID-19 (principal); D84.9 Immunodeficiency, unspecified; Z85.3 Personal history of malignant neoplasm of breast; Z92.21 Personal history of antineoplastic chemotherapy
CPT/HCPCS: 36591; 71046; 80053; 81001; 83605; 85025; 85610; 85730; 87040; 87631; 96360; 99283; J7030; A4216